=== PATIENT | female | born 1955 | race Caucasian/White ===

== ENCOUNTER 2017-03-08 07:16 | Inpatient (IN) | payer BC ==
--- NOTE | 2017-02-20 01:09 | HP ---
HISTORY AND PHYSICAL: DATE OF ADMISSION/SURGERY: 03/08/17 ATTENDING PHYSICIAN: Dr. Weller * (DICTATED BY TAMARA RAMEY) PROCEDURE: Left total hip replacement. REASON FOR VISIT: Left hip pain. HISTORY OF PRESENT ILLNESS: The patient is a very pleasant 61-year-old female now with a longstanding history of significant left hip pain with x-ray showing bone-on- bone osteoarthritis. The patient had failed conservative methods such as NSAIDs and activities and has elected to undergo a left total hip arthroplasty with Dr. Weller on 03/08/17. PAST MEDICAL HISTORY: 1. Diabetes. 2. Hypertension. 3. Elevated cholesterol. 4. Generalized osteoarthritis. PAST SURGICAL HISTORY: Vaginal delivery x4. MEDICATIONS: 1. Glucophage 500 mg 1 tablet daily. 2. Losartan 50 mg p.o. daily. 3. Metoprolol ER 100 mg p.o. daily. 4. Atorvastatin 10 mg p.o. once weekly. ALLERGIES: TETRACYCLINE. FAMILY HISTORY: Father, hypertension. Mother, depression, due to suicide at age 41. SOCIAL HISTORY: The patient is a professor at [employer]. She is a nonsmoker who currently lives with her and her son. She denies any alcohol use. REVIEW OF SYSTEMS: General: Denies any fevers, chills. No unintentional weight loss or gain. The patient has a phobia of anesthesia and wishes to have the lightest sedation possible. HEENT: Negative for headaches, lightheadedness , or dizziness. Integument: Negative for abrasions, lesions, open wounds or sores. Cardiothoracic: Positive for hypertension. Positive for elevated cholesterol. Negative for chest pain, palpitations or edema and history of MIs. Pulmonary: Negative for shortness of breath, COPD. Positive for hay fever. GI: Negative for nausea, vomiting, constipation, diarrhea, or GERD. : Negative for urinary frequency and urgency. No history of UTIs. Musculoskeletal: Positive for left hip pain. Neuro: Negative for paresthesias , numbness. No history of seizure, stroke, or epilepsy. Endocrine: Positive for diabetes. Negative for thyroid disease. Hematologic: Negative for easy bruising, excessive bleeding. No history of DVTs or PEs. Positive for anemia during . Infectious Disease: Negative for MRSA, hepatitis C, HIV or VRE. PHYSICAL EXAMINATION GENERAL: Well appearing, no acute distress. Alert and oriented, appears stated age. VITAL SIGNS: Height 65 inches, weight 149 pounds. Pulse 78, blood pressure 128 /76, respirations 12, temperature 96.8. BMI 24.8. HEENT: Normocephalic, atraumatic. EOMI. CARDIAC: Regular rate and rhythm. No murmurs, gallops, or rubs. PULMONARY: Lungs clear to auscultation bilaterally. No crackles, rhonchi or wheezes. ABDOMEN: Soft, nontender, nondistended. Mild obesity. Negative CVA tenderness bilaterally. NEUROLOGIC: Alert and oriented x 3. Cranial nerves grossly intact. Sensation is intact to bilateral touch in lower extremities. No edema bilaterally in lower extremities. MUSCULOSKELETAL: Equal flexion and extension against resistance, bilateral lower extremities. Positive dorsiflexion and plantar flexion, equal in bilateral lower extremities. Posterior tibial pulses 2+ bilaterally. Negative Gillian's sign bilaterally. Mild antalgic gait favoring the left hand side. DIAGNOSTIC STUDIES: X-rays of the left hip obtained on 01/01/17 shows advanced osteoarthritis of the left hip. ASSESSMENT AND PLAN: The patient has elected to undergo a left total hip replacement on 03/08/[address] Samir Weller. We discussed with the patient that she needs to have discussion with Anesthesia with regards to the effect of anesthetic use as she does have quite a fear of being put "completely under". The patient was recently seen by her PCP who cleared her. She underwent preoperative testing. She wishes to go home postoperatively. She will have preadmission testing completed this afternoon. She is unsure of what medications work for her postoperatively and so, none were sent. She will use Coumadin postoperatively for DVT prophylaxis. She had no other questions or concerns with regards to the procedure today, but will call us if any do arise. TAMARA RAMEY [id number]/[facility] #: [id number] MTDJuve
[~2017-03-08 07:16] MED LIST: Buffered Lidocaine 0.9% SYRIN* 5 ML/SYR SYRINGE INTRADERM ONE; DiMENhydriNATE IV* 50 MG/ML VIAL IV PUSH PRN; Famotidine IV* 10 MG/ML 2 ML (20 mg) IV ONE; Morphine INJ* 4 MG/ML 1 ML CARPUJECT IV PRN; PROCHLORPERAZINE INJ 5 MG/ML 2 ML VIAL IV PRN; Scopolamine 1.5 mg* PATCH TRANSDERM PRN; fentaNYL* 50 MCG/ML 2 ML VIAL (100 MCG VIAL) IV PRN; oxyCODONE/Acetamin 5/325 MG* TAB PO PRN
--- OUTSIDE RECORDS SUMMARY | 2017-03-08 07:23 | XMS REPORT ---
:1955 External Reference #:[id number] Author Organization [employer] Address [address] [address] Phone [phone] Care Team Providers Name Role Phone Silvana Preston MD Primary Care Physician Unavailable Payers Type Date Identification Numbers Payment Provider Subscriber Commercial Effective: Policy Number: [employer] Carolyn Urbina 2016 [id number] PayID: [id number] [address] [address] [place] [address] Problems Date Description Provider Status Onset: 01/01/2017 Localized, primary osteoarthritis of Samir Weller M.D. Active the pelvic region and thigh Family History Date Family Member(s) Problem(s) Comments General Osteoarthritis General Arthritis, Osteo Social History Type Date Description Comments Lives With Lives With Son Lives With granddaughter Occupation Professor ETOH Use Drinks Alcoholic Beverages Rarely Smoking Patient has never smoked Exercise Type/Frequency Exercises sporadically Allergies, Adverse Reactions, Alerts Date Description Reaction Status Severity Comments 01/01/2017 Tetracycline active Medications Medication Date Status Form Strength Qnty SIG Indications Ordering Provider Glucophage Active Tablets 500mg 2 by Unknown 000 mouth twice a day Losartan Active Tablets 50mg 1 by Unknown Potassium 000 mouth every day Metoprolol Active Tablets ER 100mg 1 by Unknown Succinate ER 000 24HR mouth every day Atorvastatin Active Tablets 10mg 1 by Unknown Calcium 000 mouth every day Vital Signs Date Vital Result Comment 02/17/2017 Height 65 inches 5'5" Weight 149.00 lb Heart Rate 78 /min BP Systolic 128 mmHg BP Diastolic 76 mmHg Respiratory Rate 12 /min Body Temperature 96.9 F BMI (Body Mass Index) 24.8 kg/m2 01/20/2017 Height 65 inches 5'5" Weight 149.00 lb Respiratory Rate 18 /min Pain Level 3 BMI (Body Mass Index) 24.8 kg/m2 01/01/2017 Height 65 inches 5'5" Weight 149.00 lb Heart Rate 72 /min BP Systolic Recheck 118 mmHg BP Diastolic Recheck 74 mmHg Respiratory Rate 16 /min Body Temperature 98.0 F BMI (Body Mass Index) 24.8 kg/m2 Results Description No Information Procedures Description No Information Encounters Type Date Location Provider CPT E/M Dx Office Visit 01/20/2017 [facility], [address] M16.12 2:00p Ashley Basilio Office Visit 01/01/2017 [facility], [address] M16.11 1:30p [facility] Ghanshyam Pitts M.D. Plan of Care Future Appointment(s):03/08/2017 7:30 am - [facility] M.D. at [facility]/14/2017 9:45 am - [facility] M.D. at [facility]/17/2017 - SYEDA Marina16.12 Unilateral primary osteoarthritis, left hipFollow up:Follow up 3-4 weeks post-op
[2017-03-08] MEDS ORDERED: Famotidine IV* 10 MG/ML 2 ML (20 mg) ONE (07:46)
[2017-03-08] MEDS ORDERED: ceFAZolin 2 GM PREMIX (*) 2 GM/50 ML BAG IVPB ONE (07:46)
[2017-03-08] MEDS ORDERED: Buffered Lidocaine 0.9% SYRIN* 5 ML/SYR SYRINGE ONE (07:46)
[2017-03-08] MEDS ORDERED: Midazolam* 1 MG/ML 10 ML VIAL (10 MG) ONE (07:51)
[2017-03-08] MEDS ORDERED: KETAMINE HCL* 50 MG/ML 10 ML VIAL ONE (07:51)
[2017-03-08] MEDS ORDERED: fentaNYL* 50 MCG/ML 2 ML VIAL (100 MCG VIAL) ONE (07:51)
[2017-03-08] MEDS ORDERED: Morphine PF AMP (0.5MG/ML)* 5 MG/10 ML AMP ONE (09:11)
[2017-03-08] MEDS ORDERED: Naloxone* 2 MG in NS 0.9% 250 ML* 250 ML IV PRN (10:53)
[2017-03-08] MEDS ORDERED: Ondansetron INJ* 2 MG/ML VIAL IV PRN ×2 (10:53→11:50)
[2017-03-08] MEDS ORDERED: DiMENhydriNATE IV* 50 MG/ML VIAL IV PUSH PRN (10:53)
[2017-03-08] MEDS ORDERED: oxyCODONE/Acetamin 5/325 MG* TAB PO PRN ×2 (10:53→11:50)
[2017-03-08] MEDS ORDERED: Nalbuphine* 20 MG/ML 1 ML VIAL IV PRN (10:53)
[2017-03-08] MEDS ORDERED: PROCHLORPERAZINE INJ 5 MG/ML 2 ML VIAL IV PRN (10:53)
[2017-03-08] MEDS ORDERED: Naloxone* 0.4 MG/ML 1 ML VIAL IV PRN (10:53)
[2017-03-08] MEDS ORDERED: Scopolamine 1.5 mg* PATCH TRANSDERM PRN (10:53)
[2017-03-08] MEDS ORDERED: Ketorolac INJ* 30 MG/ML 1 ML VIAL IV PRN (10:53)
[2017-03-08] MEDS ORDERED: Propofol* 10 MG/ML 20 ML BTL IV PUSH ONE (11:43)
[2017-03-08] MEDS ORDERED: Phenylephrine IV* 40 MCG/ML 10 ML SYRINGE ONE (11:43)
[2017-03-08] MEDS ORDERED: Phenylephrine INJ* 10 MG/ML 1 ML VIAL (10 MG) ONE (11:43)
[2017-03-08] MEDS ORDERED: Bupivacaine 0.5% SDV PF* 30 ML VIAL ONE ×2 (11:44)
[2017-03-08] MEDS ORDERED: Polyethylene Glycol 3350* 17 GM PACKET PO PRN (11:50)
[2017-03-08] MEDS ORDERED: oxyCODONE TAB* 5 MG TAB PO PRN (11:50)
[2017-03-08] MEDS ORDERED: Morphine INJ* 4 MG/ML 1 ML CARPUJECT IV PRN (11:50)
[2017-03-08] MEDS ORDERED: Bisacodyl SUPP* 10 MG SUPP PR PRN (11:50)
[2017-03-08] MEDS ORDERED: diPHENhydraMINE IV* 50 MG/ML 1 ml VIAL (BENADRYL) IV PRN (11:50)
[2017-03-08] MEDS ORDERED: Dextrose 50% Syringe 50 ML* 25 GM/50 ML SYRINGE IV PUSH PRN (12:12)
--- NOTE | 2017-03-08 12:59 | RAD ---
HISTORY: Status post left hip arthroplasty COMPARISONS: December 23 December 06, 2016 VIEWS: 1, Single frontal view of the pelvis FINDINGS: BONE DENSITY: Normal. BONES: The patient is status post left hip arthroplasty. JOINTS: The patient is status post left hip arthroplasty. There is mild osteoarthritis of the right hip and SI joints. ALIGNMENT: There is no dislocation. SOFT TISSUES: Unremarkable. OTHER FINDINGS: None. IMPRESSION: STATUS POST LEFT HIP ARTHROPLASTY
[2017-03-08] MEDS ORDERED: Scopolamine 1.5 mg* PATCH ONE (13:17)
[2017-03-08] MEDS ORDERED: DiMENhydriNATE IV* 50 MG/ML VIAL ONE (13:26)
[2017-03-08] MEDS ORDERED: Warfarin TAB(*) 4 MG PO ONE (17:00)
[2017-03-08] MEDS: Insulin LISPRO* 1 UNITS UNIT SUBCUT SCH (17:12)
--- NOTE | 2017-03-08 17:21 | CONS ---
CC: Dr. Silvana Preston; Dr. Samir Weller * CONSULTATION REPORT: DATE OF CONSULTATION: 03/08/17 PHYSICIAN REQUESTING CONSULTATION: Dr. Samir Weller. PRIMARY CARE PROVIDER: Silvana Preston MD ATTENDING PHYSICIAN: Dr. Jackson Judd (dictated by Diana Donohue NP). CHIEF COMPLAINT: Co-medical management in a patient with a history of type 2 diabetes mellitus, hypertension, and hyperlipidemia. HISTORY OF PRESENT ILLNESS: Ms. Urbina is a 61-year-old female with past medical history significant for type 2 diabetes mellitus, hypertension, hyperlipidemia and osteoarthritis, who presents to the hospital today for an elective left total hip replacement with Dr. Weller. Prior to the surgery, the patient states that she has been in her usual state of health. Denies any fevers, chills, shortness of breath, chest pain, nausea, vomiting, or diarrhea. She does report left hip pain that she had been taking naproxen for. The hospitalists were asked to assist with the co-medical management of this patient during her hospitalization. PAST MEDICAL HISTORY: 1. Type 2 diabetes mellitus. 2. Hypertension. 3. Hyperlipidemia. 4. Generalized osteoarthritis. PAST SURGICAL HISTORY: None. HOME MEDICATIONS: Include: 1. Glucophage 500 mg oral once daily. 2. Losartan 50 mg oral daily. 3. Metoprolol succinate 100 mg oral daily. 4. Atorvastatin 10 mg oral once weekly. 5. Fish oil 1000 mg oral daily, the patient has not taken for 2 weeks preop. 6. Aleve 220 mg 2 tablets once daily in the morning as needed for pain, has been holding for 2 weeks. ALLERGIES: TETRACYCLINE and seasonal allergies. FAMILY HISTORY: The patient's father had a history of prostate cancer and hypertension. Her brother has a history of diabetes mellitus and heart disease , he is status post a 3-vessel CABG. The patient's mother had a significant history of depression and passed at age 42 from suicide. She denies any other family histories. SOCIAL HISTORY: The patient denies tobacco, recreational drug use. She rarely drinks alcohol. 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 She lives with her . Her daughter Melly, and , Aries Urbina will be her surrogate decision makers in the event she is unable to make decisions for herself. REVIEW OF SYSTEMS: I performed a 14-point review of systems. All the pertinent positives and negatives are mentioned in the history of present illness. The remaining review of systems are negative. PHYSICAL EXAM: Vital Signs: Temperature 97.2, heart rate 62, respiratory rate 12, O2 sat 96% on room air, blood pressure 95/61. General Appearance: The patient is alert, pleasant, appears to be in no acute distress. HEENT: Normocephalic, atraumatic. Pupils are equal and reactive to light. Extraocular movements are intact. Respiratory: There is no accessory muscle use and lungs are clear to auscultation bilaterally. Cardiovascular: Regular rate and rhythm. S1 and S2 present. There are no murmurs, rubs, or gallops heard. Abdomen: Soft, nontender, nondistended. Bowel sounds present x4. Extremities: There is no lower extremity edema. DP and PT pulses are 2+ and symmetric. Musculoskeletal: There is no clubbing or cyanosis noted. The patient exhibits good strength in all extremities. She has a strong plantar and dorsiflex bilateral. Neurological: The patient is alert and oriented x4. Cranial nerves II through XII are grossly intact. Psychological: The patient is calm and cooperative. Skin: The patient has a dressing to her left hip that is clean, dry and intact. DIAGNOSTIC STUDIES/LAB DATA: Preoperative labs from 02/17/17 show white blood cell count of 5.6, hemoglobin 12.2, hematocrit 37, and platelet count 270,000. Preoperative urinalysis significant for 3+ leukocytes, 2+ blood, nitrite negative, WBC's 3+, RBC's 3+, bacteria absent, squamous epithelial cells present. Sodium 143, potassium 4.2, chloride 109, CO2 27, BUN 15, creatinine 1.1, and glucose 98. The BMP appears to have been obtained 07/13/16. IMPRESSION: Ms. Urbina is a 61-year-old female with past medical history significant for type 2 diabetes mellitus, hypertension, hyperlipidemia and osteoarthritis who presented to the hospital today for an elective left total hip arthroplasty with Dr. Weller. The hospitalists were asked to consult on the patient to assist with co-medical management. ASSESSMENT/PLAN: 1. Left hip osteoarthritis. The patient is status post a left total hip arthroplasty with Dr. Weller today. Management will be per Orthopedic Surgery. The patient will have her H and H trended, she will have physical therapy and occupational therapy starting in the morning. She will have her urinary catheter removed on postop day 1. She will be placed on a pain medication regimen and a bowel regimen. She will be weightbearing as tolerated on her left lower extremity. 2. Diabetes mellitus. The patient is diet controlled and on the lowest dose of metformin. While in the hospital, we will hold her metformin for now and place her on a lispro sliding scale with meals and check her glucose a.c. and h.s. I do not see a hemoglobin A1c in the records. We will check a hemoglobin A1c in the morning with her morning labs. The patient states that she does not check her glucoses at home, but when they are checked at the doctor's office, very often in the 120s. 3. Hypertension. The patient is currently hypotensive in the recovery room, I suspect in the setting of her spinal anesthesia, we will hold her losartan. We will continue her metoprolol with hold parameters. 4. Hyperlipidemia. We will continue the patient on her atorvastatin, she only takes it on Sundays. 5. Fluids, electrolytes, and nutrition. She will be on a consistent carbohydrate diet. 6. Code status. Full code. 7. DVT prophylaxis. The patient will be on warfarin per Orthopedics and bridged with subcu heparin. 7. Disposition. Inpatient with disposition per Orthopedic Surgery. TIME SPENT: Time for this consultation was approximately 45 minutes, greater than half of that was spent with the patient discussing medications, past medical history, the events leading up to her arrival today, and performing a physical examination. Reviewed by JANENE SPEARS 03/15/17 1308 [id number]/[facility] #: [id number] CLAY
[2017-03-08] MEDS: ceFAZolin 1 GM VIAL(*) 1 GM in NS 0.9% 50 ML* 50 ML IVPB SCH (18:04)
[2017-03-08] MEDS: Magnesium Hydroxide LIQ* 30 ML UDC PO SCH (21:10)
[2017-03-08] MEDS: Docusate CAP* 100 MG PO SCH (21:10)
--- NOTE | 2017-03-08 21:35 | PN ---
Progress Note - Progress Note Date of Service: 03/08/17 Note: I saw the patient at !8:00 and again now, she still has N and V. She doesn't want some of the prn nausea meds as she is very sensitive to medications. I discussed trying low dose narcan to treat her vomiting and she agrees. I have ordered up the dosage used for itching and discussed it with her nurse. She is alert, no complaints of pain, VSS
[2017-03-09] MEDS ORDERED: Ondansetron TAB* 4 MG PO PRN (01:30)
[2017-03-09] MEDS: ceFAZolin 1 GM VIAL(*) 1 GM in NS 0.9% 50 ML* 50 ML IVPB SCH ×2 (01:39→09:28)
--- NOTE | 2017-03-09 03:31 | OP ---
DATE OF OPERATION: 03/08/17 - ROOM #341 DATE OF : 55 SURGEON: Samir Weller MD INFORMATION SECURITY RISK ANALYST: 1. Maria Elena Martinez RPA 2. Poly Wetzel RPA. ANESTHESIOLOGIST: Taz Ray MD ANESTHESIA: Spinal sedation. PRE-OP DIAGNOSIS: Osteoarthritis left hip. POST-OP DIAGNOSIS: Osteoarthritis left hip. OPERATIVE PROCEDURE: Left total hip arthroplasty. ESTIMATED BLOOD LOSS: 100 mL. COMPLICATIONS: None. HARDWARE: Adriana #6 M/L taper with extended offset and reduced neck, 48 mm Continuum cup, 0 degree liner with vitamin E impregnation, -3.5 mm, 32 mm Biolox head. SUMMARY: Ms. Urbina is a 61-year-old female who has been having continued troubles with left hip pain. She had very specific osteoarthritic changes on x- ray where she had large bone cyst, spurs and was completely bone on bone. She also had very limited motion and function was difficult. I discussed with her that a total hip arthroplasty should work well to decrease her pain and improve her function. Risks of surgery such as infection, scar formation, stiffness, DVT , pulmonary embolism, hardware failure, joint instability and leg length discrepancy were some of the risks discussed. She had been cleared and medically optimizing and wished to proceed. DESCRIPTION OF PROCEDURE: The patient was brought to the OR and spinal anesthesia was introduced. She was then rolled into the right lateral decubitus position and an axillary roll was placed. She reported she was quite comfortable in that position. Left hip area was prepped and then draped. She still had some motion of the foot and the spinal was then redone. I had broken scrub to make sure she was back in the good position as the posts were taken out of the peg board for this. Left hip area was prepped once again and then draped. Owusu catheter had been placed. Maria Elena Martinez was present from the beginning of the case including the prep, positioning, approach, placement of the instruments and closure and the case could not have been done without an assistant professor of art. Incision was made centered about the greater trochanter extending proximally and distally for about 5 cm. Incision was carried down through the skin and subcutaneous tissues, small bleeders encountered were ligated using electrocautery. Fascia was encountered and sharply incised. Blunt dissection was carried out proximally along the gluteus musculature. Bursa was taken down with electrocautery and nice exposure of the gluteus medius and gluteus minimus was obtained. Hohmann was placed underneath this and this showed the piriformis quite nicely. She had a large vein running directly over the piriformis. Electrocautery was used to cauterize this and then take down the piriformis and short external rotators, and incise the capsule. Clear joint fluid was encountered. T-capsulotomy was made and the hip was easily dislocated. The femoral neck was marked and the head was resected. Femur was then retracted anteriorly and nice exposure of the acetabulum was obtained. She had quite redundant labrum, this was sharply taken down. Beginning with a 44 reamer, she was first deepened a little bit and then progressively expanded. She had templated for 48 cup and a 47 had a nice [id number]-wy-[id number] fit as well as good bleeding bone. A 48-mm cup was then impacted into place, and a screw was placed. Nice bite was obtained. Trial flat liner was placed and attention was turned to the proximal femur. Box osteotome was used to open the femoral canal and the canal finder was easily passed. Beginning with a 4 broach, she was progressively broached and the 5 counter sunk some. I templated her for a 5 reduced neck with an extended offset. Six was then impacted into place and counter sunk a little bit. Calcar planer was run. Trial neck and 0 head was placed and she was just a little bit long. She was, however, extraordinarily stable. Even with 90 degrees of internal rotation and full adduction, she still stayed in place and required a little extra push to be popped out. She was trialed with a - 3.5 head and had the same wonderful motion and stability and her leg length appeared essentially perfect. Trial instrumentation was reduced and the liner was impacted into place. A 6 stem was also impacted into place and a -3.5 Biolox head was also impacted. Hip was copiously pulse lavaged. Capsule and short external rotators were repaired together to the backside of the greater trochanter. Wound was again copiously pulse lavaged and the fascia was repaired using interrupted #1 Vicryl sutures. Pulse lavage was again used and then the subcutaneous tissues were approximated with 2-0 Vicryl. Skin was closed using narcisa. Sterile dressing and an abduction pillow were applied in the OR. The patient was then rolled on to the hospital bed and was stable on transfer to the recovery room. [id number]/[facility] #: [id number] CLAY
[2017-03-09 05:06] LABS: Hematocrit 29 % (35-47); Hemoglobin 9.9 g/dl (12.0-16.0)
[2017-03-09 05:18] LABS: BUN/Creatinine Ratio 21.3 (8-20); Calcium 8.6 mg/dL (8.6-10.3); EGFR African American 93.8 (>60); EGFR Non-African American 72.9 (>60); Potassium 3.6 mmol/L (3.5-5.0)
[2017-03-09] MEDS: Insulin LISPRO* 1 UNITS UNIT SUBCUT SCH ×3 (08:00→16:54)
[2017-03-09] MEDS ORDERED: metFORMIN* 500 MG TAB PO SCH (09:00)
[2017-03-09] MEDS ORDERED: Metoprolol Succinate XL TAB* 100 MG PO SCH ×2 (09:00)
[2017-03-09] MEDS ORDERED: NON FORMULARY MED* (Losartan Potassium [Cozaar] 50 MG) PO SCH (09:00)
--- NOTE | 2017-03-09 09:04 | PN ---
Progress Note - Progress Note Date of Service: 03/09/17 SOAP: Subjective: []Patient seen OOB in chair. She is feeling well and denies nausea or vomiting. Last episode of vomiting was roughly 6 hours ago. She was seen by anesthesia last night due to N and V and given low dose narcan. She has no pain currently. No dizziness, SOB or chest pain. Her metoprolol and coumadin were not given last night due to vomiting and BP not requiring. Objective: [] Vital Signs Temp 98.5 F 03/09/17 07:30 Pulse 88 03/09/17 07:30 Resp 16 03/09/17 07:30 BP 90/50 03/09/17 07:30 Pulse Ox 96 03/09/17 07:30 Intake & Output 03/08/17 03/09/17 03/09/17 18:59 06:59 18:59 Intake Total 1850 1771 Output Total 825 800 Balance 1025 971 Weight 149 lb Intake: IV Fluids 1750 1090 ABX - CEFAZOLIN 110 LR 980 NS 50ML, Cefazolin 2G 50 lr 1700 Medicated IV 56 CC - Naloxone/Narcan 56 Oral 100 625 Output: Owusu 475 300 Emesis 150 500 Estimated Blood Loss 200 Other: # Bowel Movements 0 Laboratory Last Values Hgb 9.9 g/dl (12.0-16.0) L 03/09/17 04:48 Hct 29 % (35-47) L 03/09/17 04:48 INR (Anticoag Therapy) 1.06 (0.77-1.02) H 03/09/17 04:48 Sodium 136 mmol/L (133-145) 03/09/17 04:48 Potassium 3.6 mmol/L (3.5-5.0) 03/09/17 04:48 Chloride 105 mmol/L (101-111) 03/09/17 04:48 Carbon Dioxide 25 mmol/L (22-32) 03/09/17 04:48 Anion Gap 6 mmol/L (2-11) 03/09/17 04:48 BUN 17 mg/dL (6-24) 03/09/17 04:48 Creatinine 0.80 mg/dL (0.51-0.95) 03/09/17 04:48 Est GFR ( Amer) 93.8 (>60) 03/09/17 04:48 Est GFR (Non-Af Amer) 72.9 (>60) 03/09/17 04:48 BUN/Creatinine Ratio 21.3 (8-20) H 03/09/17 04:48 Glucose 132 mg/dL (70-100) H 03/09/17 04:48 POC Glucose (mg/dL) 129 mg/dL (70-100) H 03/09/17 07:43 Hemoglobin A1c 5.9 % (4.0-5.6) H 03/09/17 04:48 Calcium 8.6 mg/dL (8.6-10.3) 03/09/17 04:48 Blood Type A Positive 03/08/17 08:04 Antibody Screen Negative 03/08/17 08:04 General: OOB in chair. Well appearing, NAD. Calm and cooperative LLE: Dressing CDI without surrounding erythema BL LE: Calves supple and nontender without erythema, edema or palpable cords. Negative israel's sign. DP/PT 2+ and symmetric. Sensation intact distally/ DF/PF intact. Assessment: []POD 1 s/p left total hip arthroplasty 03/08. Dr Weller Plan: []WBAT PT/OT Heparin, coumadin 6 mg tonight Limit narcotic use due to high sensitivity. Added toradol and cyclobenzaprine, switched percocet to norco 03/10 first dressing change Appreciate hospitalist medical management
[2017-03-09] MEDS ORDERED: HYDROcodone/ACETAMIN 5-325 MG* 1 TAB PO PRN ×2 (09:24)
[2017-03-09] MEDS ORDERED: Cyclobenzaprine TAB* 10 MG PO PRN (09:24)
[2017-03-09] MEDS ORDERED: Ketorolac INJ* 15 MG/ML 1 ML VIAL IV PUSH PRN (09:25)
[2017-03-09] MEDS ORDERED: Morphine INJ* 2 MG/ML 1 ML SYRINGE (TWO MG - NEW SYRINGE VERSION) IV PRN (09:27)
[2017-03-09] MEDS: Docusate CAP* 100 MG PO SCH ×2 (09:28→21:00)
[2017-03-09] MEDS: Vitamin THERAPEUTIC TAB PO SCH (09:28)
[2017-03-09] MEDS: Heparin VIAL(*) 5000 UNITS/ML VIAL (FIVE THOUSAND) SUBCUT SCH ×2 (09:31→21:01)
[2017-03-09] MEDS: Magnesium Hydroxide LIQ* 30 ML UDC PO SCH ×2 (09:34→21:01)
--- NOTE | 2017-03-09 09:55 | PN ---
Progress Note - Progress Note Date of Service: 03/09/17 Note: Anesthesia duramorph follow up, pt had severe N and V last PM, but no pain. Neuro OK, -MESSER, s/p THR, continue oral meds.
[2017-03-09] MEDS ORDERED: Acetaminophen TAB* 325 MG ONE (14:24)
[2017-03-09] MEDS: Acetaminophen TAB* 325 MG PO PRN ×2 (14:27→20:59)
[2017-03-09] MEDS ORDERED: Warfarin TAB(*) 6 MG PO ONE (17:00)
[2017-03-09] MEDS ORDERED: NS 0.9% 1000 ML* 1,000 ML IV ONE (17:54)
--- NOTE | 2017-03-09 20:14 | PN ---
Subjective Date of Service: 03/09/17 Interval History: Patient denies complaints. Profuse vomiting treated with narcan overnight. Resolved this AM. Able to ambulate with PT/OT without difficulty. Pain controlled without narcotics. 0/10 at time of interview. Urine output low after cronin removed. Bolus of NS ordered. Patient denies Cp, SOB, Abdominal pain, diarrhea, obstipation, other pain. Patient and family concerned about apparent intoeing that was present before surgery. Family History: Unchanged from Admission Social History: Unchanged from Admission Past Medical History: Unchanged from Admission Objective Active Medications: Acetaminophen (Tylenol Tab*) 650 mg PO Q4H PRN PRN Reason: PAIN Last Admin: 03/09/17 14:27 Dose: 650 mg Hydrocodone Bitart/Acetaminophen ([place] 5-325 Tab*) 1 tab PO Q4H PRN PRN Reason: PAIN - MILD TO MODERATE Hydrocodone Bitart/Acetaminophen ([place] 5-325 Tab*) 2 tab PO Q4H PRN PRN Reason: PAIN - MODERATE TO SEVERE Atorvastatin Calcium (Lipitor*) 10 mg PO Hou@1700 [facility] Bisacodyl (Dulcolax Supp*) 10 mg OR DAILY PRN PRN Reason: constipation Cyclobenzaprine HCl (Flexeril Tab*) 5 mg PO TID PRN PRN Reason: SPASMS Dextrose (D50w Syringe 50 Ml*) 12.5 gm IV PUSH .FOR FS < 60 - SS PRN PRN Reason: FS < 60 Diphenhydramine HCl (Benadryl Iv*) 12.5 mg IV Q6H PRN PRN Reason: PRURITIS Docusate Sodium (Colace Cap*) 100 mg PO BID [facility] Last Admin: 03/09/17 09:28 Dose: 100 mg Fentanyl Citrate (Fentanyl*) 25 mcg IV Q3M PRN PRN Reason: PAIN - MODERATE Heparin Sodium (Porcine) (Heparin Vial(*)) 5,000 units SUBCUT Q12HR [facility] Last Admin: 03/09/17 09:31 Dose: 5,000 units Lactated Ringer's (Lactated Ringers 1000 Ml Bag*) 1,000 mls @ 100 mls/hr IV PER RATE [facility] Last Admin: 03/09/17 15:30 Dose: 100 mls/hr Insulin Human Lispro (Humalog*) 0 - 5 units SUBCUT AC [facility] PRN Reason: Protocol Last Admin: 03/09/17 16:54 Dose: Not Given Ketorolac Tromethamine (Toradol Inj*) 15 mg IV Q6H PRN PRN Reason: PAIN Last Admin: 03/09/17 06:13 Dose: 15 mg Ketorolac Tromethamine (Toradol Inj*) 15 mg IV PUSH Q6H PRN PRN Reason: PAIN - MILD TO MODERATE Lactulose (Lactulose*) 30 ml PO Q6H PRN PRN Reason: constipation Magnesium Hydroxide (Milk Of Magnesia Liq*) 30 ml PO BID [facility] Last Admin: 03/09/17 09:34 Dose: Not Given Morphine Sulfate (Morphine Inj (Syringe)*) 2 mg IV Q2H PRN PRN Reason: PAIN - BREAKTHROUGH Multivitamins (Theragran Tab*) 1 tab PO DAILY [facility] Last Admin: 03/09/17 09:28 Dose: 1 tab Ondansetron HCl (Zofran Inj*) 4 mg IV Q6H PRN PRN Reason: nausea Ondansetron HCl (Zofran Tab*) 4 mg PO Q6H PRN PRN Reason: NAUSEA Oxycodone HCl (Roxycodone Tab*) 10 mg PO Q4H PRN PRN Reason: PAIN - SEVERE Oxycodone/Acetaminophen (Percocet 5/325 Tab*) 1 tab PO ONCE PRN PRN Reason: PAIN - MODERATE Oxycodone/Acetaminophen (Percocet 5/325 Tab*) 1 tab PO Q4H PRN PRN Reason: Moderate Pain Pharmacy Profile Note (Scopolamine Patch Remove*) 1 note PATCH OFF Q72H ONE Stop: 03/11/17 05:46 Last Admin: 03/09/17 11:30 Dose: 1 patch Pharmacy Profile Note (Coumadin Daily Reminder*) 1 note FOLLOW UP 1700 [facility] Last Admin: 03/09/17 16:43 Dose: 1 note Polyethylene Glycol/Electrolytes (Miralax*) 17 gm PO DAILY PRN PRN Reason: Constipation Prochlorperazine Edisylate (Compazine Inj*) 2.5 mg IV ONCE PRN PRN Reason: NAUSEA/VOMITING Vital Signs - 8 hr 03/09/17 03/09/17 15:30 15:43 Temperature 98.0 F Pulse Rate 83 74 Respiratory 16 Rate Blood Pressure 87/46 91/51 (mmHg) O2 Sat by Pulse 98 Oximetry Oxygen Devices in Use Now: None Appearance: Patient is a 61yo female who appears stated age and is sitting in the bed in NAD. Eyes: No Scleral Icterus, PERRLA Ears/Nose/Mouth/Throat: NL Teeth, Lips, Gums, Clear Oropharnyx, Mucous Membranes Moist Neck: NL Appearance and Movements; NL JVP, Trachea Midline, No Thyroid Enlargement, Masses Respiratory: Symmetrical Chest Expansion and Respiratory Effort, Clear to Auscultation Cardiovascular: NL Sounds; No Murmurs; No JVD, RRR, No Edema, - - Pulses 2+ in B /L Radial, DP/PT. Abdominal: NL Sounds; No Tenderness; No Distention, No Hepatosplenomegaly Lymphatic: No Cervical Adenopathy Extremities: No Edema, No Clubbing, Cyanosis Skin: No Rash or Ulcers, No Nodules or Sclerosis, - - Left hip incision covered with dressing without signof hematoma or ecchymosis. Neurological: Alert and Oriented x 3, NL Sensation, NL Muscle Strength and Tone Result Diagrams: 03/09/17 04:48 03/09/17 04:48 Assess/Plan/Problems-Billing Assessment: Patient is a 61yo female with a PMH significant for HTN, HLD, DMII who is POD#1 after a LTHA with a course complicated by nausea and hypotension. - Patient Problems (1) Post-operative state Current Visit: Yes Status: Acute Code(s): Z98.890 - OTHER SPECIFIED POSTPROCEDURAL STATES SNOMED Code(s): 62232947 Comment: POD#1, hypotensive, refractory to fluids, no void and low bladder scans after removal of cronin. 1L NS bolus ordered. N/V resolved, scopalamine patch removed per patient request. Passing Flatus. H/H at 9.9, will monitor. (2) Nausea & vomiting Current Visit: Yes Status: Acute Code(s): R11.2 - NAUSEA WITH VOMITING, UNSPECIFIED SNOMED Code(s): 90042955 Comment: Resolved with Narcan, Zofran and Scopalamine. Likely contributing to fluid losses and hypotension/poor urine output. (3) Hypotension Current Visit: Yes Status: Acute Comment: Asymptomatic. Hold Antihypertensives. Fluids at 100ml an hour. Bolus of 1L ordered. (4) Diabetes Current Visit: Yes Status: Acute Code(s): E11.9 - TYPE 2 DIABETES MELLITUS WITHOUT COMPLICATIONS SNOMED Code(s): 42655139 Comment: SSI, FSBG ACHS. Blood sugars between 112-162. Hold Metformin, Continue at discharge. (5) HTN (hypertension) Current Visit: Yes Status: Acute Code(s): I10 - ESSENTIAL (PRIMARY) HYPERTENSION SNOMED Code(s): 91945742 Comment: Currently hypotensive. Hold antihypertensives, continue as tolerated. (6) HLD (hyperlipidemia) Current Visit: Yes Status: Acute Code(s): E78.5 - HYPERLIPIDEMIA, UNSPECIFIED SNOMED Code(s): 25519618 Comment: Continue statin. (7) Full code status Current Visit: Yes Status: Acute Code(s): Z78.9 - OTHER SPECIFIED HEALTH STATUS SNOMED Code(s): 338793012 (8) DVT prophylaxis Current Visit: Yes Status: Acute Code(s): ICV7260 - SNOMED Code(s): 653737613 Comment: Lovenox bridge to Warfarin per ortho, INR 1.06. Status and Disposition: Inpatient, plan for home with VNS.
[2017-03-10 05:29] LABS: Hematocrit 27 % (35-47); Hemoglobin 9.2 g/dl (12.0-16.0)
[2017-03-10 05:46] LABS: BUN/Creatinine Ratio 16.5 (8-20); Calcium 8.2 mg/dL (8.6-10.3); EGFR African American 95.2 (>60); Potassium 3.4 mmol/L (3.5-5.0)
[2017-03-10] MEDS ORDERED: Potassium Chlor TAB* 20 MEQ TAB.ER PO ONE (06:59)
[2017-03-10] MEDS: Insulin LISPRO* 1 UNITS UNIT SUBCUT SCH ×2 (07:30→12:28)
--- NOTE | 2017-03-10 08:43 | PN ---
Progress Note - Progress Note Date of Service: 03/10/17 SOAP: Subjective: []Patient seen at bedside. Her pain is well controlled. No chest pain, SOB, nausea, vomiting or dizziness. She desires to go home today. Objective: [] Vital Signs Temp 98.0 F 03/10/17 07:15 Pulse 105 03/10/17 07:15 Resp 17 03/10/17 08:00 BP 112/65 03/10/17 07:15 Pulse Ox 98 03/10/17 07:15 Intake & Output 03/09/17 03/10/17 03/10/17 18:59 06:59 18:59 Intake Total 1319 2945 747 Output Total 10 1950 Balance 1309 995 747 Intake: IV Fluids 1099 1905 522 ABX - CEFAZOLIN 55 LR 1044 925 522 ns bolus 980 Oral 220 1040 225 Output: Urine 10 1950 Other: Estimated Void Medium Date of Last Bowel 03/10/17 Movement # Bowel Movements 1 Estimated Stool Amount Medium # Voids 1 Laboratory Last Values Hgb 9.2 g/dl (12.0-16.0) L 03/10/17 04:59 Hct 27 % (35-47) L 03/10/17 04:59 INR (Anticoag Therapy) 1.33 (0.77-1.02) H 03/10/17 04:59 Sodium 137 mmol/L (133-145) 03/10/17 04:59 Potassium 3.4 mmol/L (3.5-5.0) L 03/10/17 04:59 Chloride 106 mmol/L (101-111) 03/10/17 04:59 Carbon Dioxide 25 mmol/L (22-32) 03/10/17 04:59 Anion Gap 6 mmol/L (2-11) 03/10/17 04:59 BUN 13 mg/dL (6-24) 03/10/17 04:59 Creatinine 0.79 mg/dL (0.51-0.95) 03/10/17 04:59 Est GFR ( Amer) 95.2 (>60) 03/10/17 04:59 Est GFR (Non-Af Amer) 74.0 (>60) 03/10/17 04:59 BUN/Creatinine Ratio 16.5 (8-20) 03/10/17 04:59 Glucose 110 mg/dL (70-100) H 03/10/17 04:59 POC Glucose (mg/dL) 129 mg/dL (70-100) H 03/10/17 07:25 Hemoglobin A1c 5.9 % (4.0-5.6) H 03/09/17 04:48 Calcium 8.2 mg/dL (8.6-10.3) L 03/10/17 04:59 Blood Type A Positive 03/08/17 08:04 Antibody Screen Negative 03/08/17 08:04 General: Well appearing, no acute distress. Calm and cooperative LLE: Dressing changed. Incision CDI, no erythema Bilateral LE: Calves supple and nontender without erythema, edema or palpable cords. Negative israel's sign. Sensation intact distally. 2+ DP/PT pulses. DF/PF intact. Assessment: []POD 2 s/p left total hip arthroplasty 03/08, Dr. Weller Plan: []WBAT PT/OT Heparin, coumadin 6 mg today Limit narcotic use due to high sensitivity. Appreciate hospitalist medical management DC today
[2017-03-10] MEDS: Docusate CAP* 100 MG PO SCH (09:46)
[2017-03-10] MEDS: Magnesium Hydroxide LIQ* 30 ML UDC PO SCH (09:48)
[2017-03-10] MEDS: Vitamin THERAPEUTIC TAB PO SCH (09:49)
[2017-03-10] MEDS: Heparin VIAL(*) 5000 UNITS/ML VIAL (FIVE THOUSAND) SUBCUT SCH (10:26)
[2017-03-10 12:08] VITALS: BP 125/72
[2017-03-10] MEDS ORDERED: Warfarin TAB(*) 6 MG PO SCH (17:00)
--- NOTE | 2017-03-10 22:48 | DS ---
DISCHARGE SUMMARY: DATE OF ADMISSION: 03/08/17 DATE OF SURGERY: 03/08/17 DATE OF DISCHARGE: 03/10/17 DATE OF SERVICE: 03/10/17 SURGEON: Dr. Samir Weller * (DICTATED BY TAMARA MCBRIDE) SOFTWARE DEVELOPMENT ANALYST: TAMARA Marina; TAMARA Mcbride PRE-OP DIAGNOSIS: Osteoarthritis, left hip. POST-OP DIAGNOSIS: Osteoarthritis, left hip. OPERATIVE PROCEDURE: Left total hip arthroplasty. HISTORY: Ms. Urbina is a 61-year-old female who had continued troubles with left hip pain. X-ray showed osteoarthritic changes. Physical exam dictated very limited range of motion and limited function. She agreed to a total hip arthroplasty on the left side. HOSPITAL COURSE: The patient was admitted to [facility] on . She underwent a left total hip arthroplasty without complication. She recovered briefly in the PACU and then was transferred to the short stay surgical unit in stable condition. On the day of surgery, she developed nausea and vomiting. She was seen by Dr. Ray her anesthesiologist who treated her with low dose Narcan as the patient is very sensitive to medications. The following day which was postop day #1, her H and H was 9.9/29, INR was 1.33. Her nausea and vomiting had resolved. She had missed some of her medications including metoprolol and Coumadin due to vomiting and low blood pressure subsequent to vomiting. In general, she was well appearing, in no acute distress. She was calm and cooperative. Her dressing was clean, dry, and intact without any surrounding erythema. On bilateral lower extremities, her calves were supple and nontender without erythema, edema, or palpable cords. She had a negative Homans' sign. Dorsalis pedis and posterior tibial pulses were 2+ and symmetric. Sensation was intact distally. Dorsiflexion and plantar flexion were intact. On postop day #2, H and H was 9.2 and 27, INR was 1.33. Her pain was well controlled. She had no chest pain, nausea, vomiting, or dizziness. She desires to go home. After the discontinuation of her spinal analgesia, she was under good pain control with Tylenol and Toradol alone. On postop day #2, the patient's pain was well controlled and she was found to be stable for discharge. Throughout her hospital stay, she remained afebrile. Her vital signs were relatively stable, though we did have to hold her blood pressure medication due to a dropping blood pressure after vomiting excessively. Lowest BP was 87/46. On the day of discharge, her vitals were temperature 98.0 orally, pulse rate 102, respiratory rate 17, oxygen saturation 100, and blood pressure 125/72. Discharge condition is stable. DISCHARGE MEDICATIONS: 1. Metoprolol succinate ER 100 mg tablet q.a.m. 2. Metformin 500 mg p.o. q.a.m. 3. Losartan 500 mg p.o. q.a.m. 4. Fish oil 100 mg capsule p.o. daily. 5. Atorvastatin 10 mg p.o. daily. 6. Acetaminophen 325 mg tabs, may take 650 mg p.o. q.4 hours p.r.n., not to exceed a total of 4000 mg of Tylenol from all sources. 7. [place] 5/325 mg 1 tab p.o. q.4 hours p.r.n., not to exceed 6 tabs daily. 8. Warfarin 2 mg tablet dosing per INR. 9. Docusate 100 mg p.o. t.i.d. p.r.n. for constipation. DISCHARGE CONDITION: Stable. DISCHARGE INSTRUCTIONS: The patient is weightbearing as tolerated. Continue hip precautions. Do not cross legs or bend greater than 90 degrees or squat. Okay to shower after 03/11. No bathing, swimming, or submerging. If you experience increased drainage, redness, increased pain or fever, please call the Orthopedic office. If you experience shortness of breath or chest pain, go directly to the emergency room. Regular diet. Increase fluid and fiber. May use stool softeners to prevent constipation. Call office if no bowel motion within 48 hours. Physical Therapy and Occupational Therapy exercises as shown. Coumadin 6 mg tonight. Recheck INR tomorrow with home nursing. Home nurses will draw INR on Mondays and . Continue pain control primarily with Tylenol. Please do not exceed 4000 mg of Tylenol per day from all sources. [place] does contain Tylenol as well. A prescription for [place] 5/325 mg tabs was sent to your pharmacy and may take 1 tablet every 4 to 6 hours as needed for pain for a maximum of 6 per day. Again, please note that [place] does contain Tylenol. Follow up with Dr. Weller within 4 weeks or sooner with any questions or concerns. TAMARA MCBRIDE [id number]/[facility] #: [id number] [place]
[2017-03-11] MEDS ORDERED: Scopolamine PATCH Remove* 1 NOTE MISC PATCH OFF ONE (05:45)
[2017-03-14] MEDS ORDERED: Rosuvastatin (NF) 10 MG TAB PO SCH (12:06)
[2017-03-14] MEDS ORDERED: Atorvastatin* 10 MG TAB PO SCH (17:00)
== END 2017-03-10 12:50 | disposition home or self-care (01) | DRG 301 ==
LOC: AA 07:16 → SSU 15:04
PROVIDERS: ADMIT Orthopaedic Surgery; ATTEND Orthopaedic Surgery
PROC: 0SRB03A Replacement of Left Hip Joint with Ceramic Synthetic Substitute, Uncemented, Open Approach (ICD-10-PCS; principal; 2017-03-08 08:45)
DX: M16.12 Unilateral primary osteoarthritis, left hip (principal); E11.9 Type 2 diabetes mellitus without complications; I10 Essential (primary) hypertension; I95.81 Postprocedural hypotension; E78.5 Hyperlipidemia, unspecified; Z79.84 Long term (current) use of oral hypoglycemic drugs; Z79.899 Other long term (current) drug therapy; Z88.8 Allergy status to other drugs, medicaments and biological substances; Z82.49 Family history of ischemic heart disease and other diseases of the circulatory system; Z81.8 Family history of other mental and behavioral disorders; Z80.42 Family history of malignant neoplasm of prostate; Z83.3 Family history of diabetes mellitus
CPT/HCPCS: 36415; 72170; 80048; 83036; 85014; 85018; 85610; 86850; 86900; 86901; 88304; 88311; A9270-GY; J0690; J1240; J1644; J1885; J2250; J2310; J2704; J3010